=== PATIENT | female | born 1990 ===

== ENCOUNTER → 2021-01-04 12:11 | Outpatient (CLI) | payer OTHER, SELFPAY ==
--- NOTE | ~2021-01-04 | XR_ITS ---
XR foot RT min 3V DATE: 01/04/2021 13:21 INDICATION: Bilateral foot pain TECHNIQUE: 4 views COMPARISON: None FINDINGS: There is mild osteoarthritis at the first metatarsophalangeal joint. No fracture, dislocation, periosteal reaction or bone destruction is detected. No calcaneal enthesopa thy. IMPRESSION: Mild osteoarthritis at first metatarsophalangeal joint Reviewed, dictated and finalized at location B.
--- NOTE | ~2021-01-04 | XR_ITS ---
XR foot LT min 3V DATE: 01/04/2021 13:21 INDICATION: Bilateral foot pain TECHNIQUE: 4 views COMPARISON: None FINDINGS: No fracture or dislocation, periosteal reaction or bone destruction. IMPRESSION: Negative Reviewed, dictated and finalized at location B. IMPRESSION: Negative
--- NOTE | ~2021-01-04 | XR_ITS ---
XR finger 1st LT min 2V DATE: 01/04/2021 13:21 INDICATION: Left thumb pain TECHNIQUE: 3 views COMPARISON: None FINDINGS: No fracture or dislocation, periosteal reaction or bone destruction. Joint spaces are prese rved. No erosive change. IMPRESSION: Negative Reviewed, dictated and finalized at location B. IMPRESSION: Negative
== END ==
PROVIDERS: PCP Registered Nurse; Visit Provider Registered Nurse
DX: M79.645 Pain in left finger(s) (principal); M79.672 Pain in left foot; M19.071 Primary osteoarthritis, right ankle and foot
CPT/HCPCS: 73140; 73630